=== PATIENT | female | born 1960 | race Caucasian/White ===

== ENCOUNTER → 2017-10-08 07:23 | Outpatient (CLI) | payer MEDICAID | END | disposition home or self-care (01) | LOC: D.CT 07:23 | DX: R77.2 Abnormality of alphafetoprotein (principal) ==

== ENCOUNTER 2018-04-20 20:16 | Emergency (ER) | payer MEDICAID | END 2018-04-20 21:42 | disposition home or self-care (01) | LOC: D.ER 20:16 | DX: K04.7 Periapical abscess without sinus (principal); K08.89 Other specified disorders of teeth and supporting structures; K21.9 Gastro-esophageal reflux disease without esophagitis; F17.200 Nicotine dependence, unspecified, uncomplicated ==

== ENCOUNTER 2018-06-22 15:46 | Emergency (ER) | payer MEDICAID ==
[~2018-06-22] VITALS: Ht 152.4 cm; Wt 45.5 kg
[2018-06-22 16:34] VITALS: Ht 152.4 cm; Wt 45.5 kg
[2018-06-22] MEDS ORDERED: XANAX XR2 MG PO (16:35)
[2018-06-22] MEDS ORDERED: ATIVAN0.5 MG PO (16:36)
[2018-06-22] MEDS ORDERED: NORCO 7.5/325 T1 TA1 PO (16:36)
[2018-06-22] MEDS ORDERED: CALCIUM 250+D T1 TAB PO (16:36)
[2018-06-22 17:06] LABS: APPEARANCE CLEAR (CLEAR); BILIRUBIN NEGATIVE (NEGATIVE); COLOR YELLOW (YELLOW); GLUCOSE NEGATIVE (NEGATIVE); KETONE NEGATIVE (NEGATIVE); NITRITE NEGATIVE (NEGATIVE); PROTEIN NEGATIVE (NEGATIVE); UROBILINOGEN NORMAL (NORMAL)
[2018-06-22 17:08] LABS: EPITHELIAL CELLS 0-5 /hpf (0-5); RED CELLS - URINE 0-5 /hpf (0-5); WHITE CELLS - URINE 0-5 /hpf (0-5)
[2018-06-22 17:09] LABS: BACTERIA MODERATE /hpf (NONE SEEN)
[2018-06-22 17:19] LABS: BASOPHILS 0.3 % (0-2); EOSINOPHILS 2.1 % (0-7); HEMATOCRIT 37.2 % (36.0-48.0); HEMOGLOBIN 12.6 g/dL (12-16); IMMATURE GRANULOCYTES 0.2 % (0-5); LYMPHOCYTES 49.7 % (15-50); MCH 30.7 pg (26.0-34.0); MCHC 33.9 g/dL (31.0-37.0); MCV 90.5 fL (80.0-100.0); MEAN PLATELET VOLUME 10.2 fL (7.4-10.4); MONOCYTES 7.3 % (2-11); NEUTROPHILS 40.4 % (40-80); PLATELET COUNT 332 10x3/uL (130-400); RBC 4.11 10x6/uL (4.00-5.40); RDW 13.1 % (11.5-14.5); WBC 9.5 10x3/uL (4.8-10.8)
[2018-06-22 17:26] LABS: ALKALINE PHOSPHATASE 75 U/L (46-116); ALT (SGPT) 20 U/L (10-68); BILIRUBIN - TOTAL 0.32 mg/dL (0.2-1.3); CALC OSMOLALITY 271 mosm/kg (275-300); CALCIUM 10.1 mg/dL (8.5-10.1); CARBON DIOXIDE 28.3 mmol/L (21.0-32.0); CHLORIDE - SERUM 104 mmol/L (98-107); CREATININE - SERUM 0.8 mg/dL (0.6-1.3); GLUCOSE 107 mg/dL (74-106); POTASSIUM - SERUM 4.6 mmol/L (3.5-5.1); PROTEIN - SERUM 8.2 g/dL (6.4-8.2); SODIUM 137 mmol/L (136-145); UREA NITROGEN 8 mg/dL (7-18); eGFR NON AFRICAN AMERICAN 78 mL/min (90-120)
[2018-06-22 17:41] LABS: AMYLASE - SERUM 91 U/L (25-115); LIPASE 133 U/L (73-393)
[2018-06-22] MEDS ORDERED: BENTYL 20 MG TA20 MG PO (22:26)
[2018-06-22] MEDS ORDERED: COMPAZINE10 MG PO (22:26)
[2018-06-22 22:48] VITALS: BP 90/60
== END 2018-06-22 22:44 | disposition home or self-care (01) ==
LOC: D.ER 15:46
PROVIDERS: Emergency Medicine
DX: R10.12 Left upper quadrant pain (principal); R11.2 Nausea with vomiting, unspecified; R51 Headache; B19.20 Unspecified viral hepatitis C without hepatic coma; K21.9 Gastro-esophageal reflux disease without esophagitis

== ENCOUNTER 2018-09-21 05:55 | Emergency (ER) | payer MEDICAID ==
[~2018-09-21] VITALS: Ht 152.4 cm; Wt 36.4 kg
[~2018-09-21 05:55] MED LIST: ATIVAN0.5 MG PO; BENTYL 20 MG TA20 MG PO; CALCIUM 250+D T1 TAB PO; COMPAZINE10 MG PO; NORCO 7.5/325 T1 TA1 PO; XANAX XR2 MG PO
[2018-09-21 05:56] VITALS: Ht 152.4 cm; Wt 36.4 kg
[2018-09-21] MEDS ORDERED: VALIUM10 MG PO (05:58)
[2018-09-21] MEDS ORDERED: COLACE100 MG PO (05:58)
[2018-09-21] MEDS ORDERED: NORCO 5/325 TAB1 TAB PO (06:43)
[2018-09-21 06:58] VITALS: BP 116/66
[2018-09-21] MEDS ORDERED: ZANTAC300 MG PO (12:31)
[2018-09-21] MEDS ORDERED: NORCO 10-325 TA1 TAB PO (14:21)
== END 2018-09-21 06:58 | disposition home or self-care (01) ==
LOC: D.ER 05:55
DX: S93.402A Sprain of unspecified ligament of left ankle, initial encounter (principal); X50.1XXA Overexertion from prolonged static or awkward postures, initial encounter; Y93.89 Activity, other specified; Y92.019 Unspecified place in single-family (private) house as the place of occurrence of the external cause

== ENCOUNTER 2018-09-21 12:29 | Emergency (ER) | payer MEDICAID ==
[~2018-09-21] VITALS: Ht 152.4 cm; Wt 43.6 kg
[~2018-09-21 12:29] MED LIST changes: +COLACE100 MG PO; +NORCO 5/325 TAB1 TAB PO; +VALIUM10 MG PO
[2018-09-21 12:30] VITALS: Ht 152.4 cm; Wt 43.6 kg
[2018-09-21] MEDS ORDERED: ZANTAC300 MG PO (12:31)
[2018-09-21] MEDS ORDERED: NORCO 10-325 TA1 TAB PO (14:21)
[2018-09-21 15:14] VITALS: BP 128/70
== END 2018-09-21 15:16 | disposition home or self-care (01) ==
LOC: D.ER 12:29
DX: S92.002G Unspecified fracture of left calcaneus, subsequent encounter for fracture with delayed healing (principal); W18.30XD Fall on same level, unspecified, subsequent encounter; F41.9 Anxiety disorder, unspecified; K21.9 Gastro-esophageal reflux disease without esophagitis

== ENCOUNTER → 2018-12-05 09:09 | Outpatient (CLI) | payer MEDICAID ==
[2018-09-21 12:30] VITALS: BMI 18.7
[~2018-12-05 09:09] MED LIST changes: +NORCO 10-325 TA1 TAB PO; +ZANTAC300 MG PO
== END | disposition home or self-care (01) ==
LOC: D.MRI 09:09
DX: S92.902G Unspecified fracture of left foot, subsequent encounter for fracture with delayed healing (principal); X58.XXXA Exposure to other specified factors, initial encounter

== ENCOUNTER 2018-12-18 05:29 | Observation (INO) | payer MEDICAID ==
[~2018-12-18] VITALS: Ht 152.4 cm; Wt 45.5 kg
[2018-12-18 06:08] VITALS: BP 118/57
[2018-12-18 06:23] LABS: BASOPHILS 0.5 % (0-2); EOSINOPHILS 3.3 % (0-7); HEMATOCRIT 36.4 % (36.0-48.0); HEMOGLOBIN 12.4 g/dL (12-16); LYMPHOCYTES 52.1 % (15-50); MCH 31.2 pg (26.0-34.0); MCHC 34.1 g/dL (31.0-37.0); MCV 91.7 fL (80.0-100.0); MEAN PLATELET VOLUME 10.2 fL (7.4-10.4); MONOCYTES 5.6 % (2-11); NEUTROPHILS 38.5 % (40-80); PLATELET COUNT 282 10x3/uL (130-400); RBC 3.97 10x6/uL (4.00-5.40); RDW 12.8 % (11.5-14.5); WBC 7.6 10x3/uL (4.8-10.8)
[2018-12-18 06:31] LABS: ALBUMIN 3.6 g/dL (3.4-5.0); ALKALINE PHOSPHATASE 50 U/L (46-116); ALT (SGPT) 18 U/L (10-68); BILIRUBIN - TOTAL 0.18 mg/dL (0.2-1.3); CALC OSMOLALITY 284 mosm/kg (275-300); CALCIUM 8.7 mg/dL (8.5-10.1); CARBON DIOXIDE 28.2 mmol/L (21.0-32.0); CHLORIDE - SERUM 107 mmol/L (98-107); CREATININE - SERUM 0.9 mg/dL (0.6-1.3); GLUCOSE 78 mg/dL (74-106); POTASSIUM - SERUM 3.9 mmol/L (3.5-5.1); PROTEIN - SERUM 7.3 g/dL (6.4-8.2); SODIUM 143 mmol/L (136-145); UREA NITROGEN 14 mg/dL (7-18); eGFR NON AFRICAN AMERICAN 68 mL/min (90-120)
[2018-12-18 06:34] LABS: APTT 31.7 SECONDS (22.8-39.4); INR 0.98 (0.85-1.17); PROTIME 12.5 SECONDS (11.6-15.0)
--- NOTE | 2018-12-18 06:35 | NUR ---
WENT INTO PT ROOM D/T C/O OF CHEST PAIN. TORADOL 30MG IVP ORDERED. PT REFUSED TORADOL D/T SHE GETS MIGRAINES WHEN SHE TAKES TORADOL. NOTIFIED DR. LAMAR. ORDER PLACED FOR 25 MG DEMEROL IVP. PT WAS VERY SATISFIED AFTER DEMEROL IVP GIVEN.
[2018-12-18 06:43] LABS: CKMB 0.5 U/L (0.0-3.6); CREATINE KINASE 79 UL (21-215); MAGNESIUM - SERUM 1.8 mg/dL (1.8-2.4); TROPONIN-I < 0.017 ng/mL (0.000-0.060)
--- NOTE | 2018-12-18 08:20 | NUR ---
PT UPDATED ON POC. PT RECEIVES VERBAL PERMISSION FROM DR. GRAY TO TAKE HOME PAIN MEDICATIONS. H2O PROVIDED TO PATIENT. ALL QUESTIONS ANSWERED. WILL CONTINUE TO MONITOR.
[2018-12-18 09:20] VITALS: BP 123/84
[2018-12-18] MEDS ORDERED: PHENERGAN25 M1 PO (11:53)
--- NOTE | 2018-12-18 12:12 | NUR ---
RECIVED FROM DIRECTOR GENERAL TMST. ADMIT ASSESSMENT PER RN
[2018-12-18 12:33] VITALS: BP 123/84; Ht 152.4 cm; Wt 45.5 kg
--- NOTE | 2018-12-18 12:39 | CN ---
PATIENT NAME:BELLA FISHER MEDICAL RECORD: [id number] : 62 LOCATION:D.M2 D.2122 ADMIT DATE: 12/18/18 ACCOUNT: [id number] CONSULTING PHYSICIAN: ABNER GRAY MD REFERRING PHYSICIAN: ABNER GRAY MD DATE OF CONSULTATION: 12/18/2018 DIAGNOSES: 1. Chest pain compatible with angina. 2. Smoking history. HISTORY OF PRESENT ILLNESS: Ms. Fisher presents with chest discomfort that awoke her at 2:30 a.m. She continues to have chest discomfort. Her EKG is normal. First set of enzymes is normal. She has no history of ischemic heart disease. PHYSICAL EXAMINATION: GENERAL APPEARANCE: Well-nourished, well-developed, appears stated age. Level of distress, comfortable. PSYCHIATRIC: Mental status, alert, normal affect. Orientation, oriented to time, place and person. EYES: Lids and conjunctiva, noninjected. No discharge, no pallor. ENT: Lips, teeth, gums, normal dentition. Oropharynx, no cyanosis, no pallor. NECK: Carotid arteries, bilateral normal upstroke, no bruits, no thrills. JUGULAR VEINS: No jugular venous pressure or distention. CERVICAL LYMPH NODES: Nontender, nonenlarged. THYROID: Not enlarged. Nontender. No nodules. LUNGS: Respiratory effort, unlabored. CHEST: Normal curvature. No thoracic deformity. No chest wall tenderness. Percussion, resonant. Auscultation, clear. No wheezes, no rales, no rhonchi. CARDIOVASCULAR: Precordial exam, nondisplaced. No heaves or pericardial thrills. Rate and rhythm, regular. Heart sounds, normal S1, normal S2. No S3, no gallop, no rub. Systolic murmur, not heard. Diastolic murmur, not heard. EXTREMITIES: No cyanosis, no edema. Peripheral pulses, full and equal in all extremities, except as noted. No bruits appreciated. ABDOMEN: Soft, nondistended. Normal aorta. No bruit. Nontender. No masses. Liver, nontender, no hepatomegaly. Spleen, nontender, no splenomegaly. MUSCULOSKELETAL: No joint tenderness. No joint swelling. No erythema. NEUROLOGICAL: Normal gait, normal strength, normal tone. SKIN: Warm and dry. OVERALL IMPRESSION: Chest discomfort. We will proceed with stress testing Cardiolite imaging. Further care depends upon findings of the stress test. TRANSINT:[id number] Voice Confirmation ID: [id number] DOCUMENT ID: [id number] ABNER GRAY MD at 1239 CC: [id number] DICTATION DATE: 12/18/18 0747 FORMAL WAITER/WAITRESS: 12/18/18 0815 ADM IN [place] [id number] [place] [address]
--- NOTE | 2018-12-18 13:51 | NUR ---
DC GIVEN TO PT
--- NOTE | 2018-12-18 13:56 | NUR ---
DC HOME PER PERSONIAL CAR
--- NOTE | 2018-12-19 08:36 | MORECARE ---
CASE MANAGEMENT DISCHARGE SUMMARY PATIENT: BELLA OBRIEN OSCAR UNIT: [id number] ADM DATE: 12/18/18 AGE: 58 : 62 SEX: F ROOM/BED: D.2121 AUTHOR: LON WILLIAM PHYSICIAN: REFERRING PHYSICIAN: ABNER GRAY MD DATE OF SERVICE: 12/19/18 Discharge Plan Patient Name: BELLA OBRIEN Facility: [facility]:[place] : 1960 Planned Disposition: Home Anticipated Discharge Date: 12/18/18 Discharge Date: 12/18/2018 Expected LOS: 1 Initial Reviewer: [email or web address] Initial Review Date: 12/19/2018 Generated: 12/19/18 9:35 am Patient Name: BELLA OBRIEN Page [id number] at 0836 All edits/amendments must be made on the electronic document DICTATION DATE: 12/19/18834 HAY BUCKLER: SALEEM 12/19/18834 RPT#: [id number] DC DATE:12/18/18 STATUS: DIS IN [facility] [address] [place] [address] END OF REPORT
--- NOTE | 2018-12-19 18:15 | ST ---
PATIENT:BELLA OBRIEN BANNER MD [facility] MEDICAL RECORD: [id number] SEX: F LOCATION:D. D.212 ORDER #: ADMISSION DATE: 12/18/18 AGE OF PATIENT: 58 REFERRING PHYSICIAN: INTERPRETING PHYSICIAN: ABNER GRAY MD DATE OF SERVICE: 12/18/2018 PROCEDURE: Nuclear stress testing. INDICATION: Chest pain of unknown etiology. She was exercised on standard Lexiscan protocol with 30 mCi of sestamibi injected at peak stress. FINDINGS: Gated SPECT reveals preserved ejection fraction greater than 60% with good wall motioning and thickening and brightening throughout all segments. SPECT imaging Cardiolite was used as myocardial perfusion agent. There is homogeneous uptake throughout all segments at stress. OVERALL IMPRESSION: This is a normal stress only nuclear stress test with homogeneous uptake throughout all segments with stress with no evidence of ischemia or previous infarction. Gated SPECT reveals preserved ejection fraction greater than 60%. In this patient with ongoing symptomatology, there is a low likelihood of hemodynamically significant coronary artery disease. TRANSINT:[id number] Voice Confirmation ID: [id number] DOCUMENT ID: [id number] ABNER GRAY MD at 1815 CC: [id number] DICTATION DATE: 12/18/18 1210 MUSEUM TECHNICIAN: 12/19/18 0012 DIS IN 12/18/18 [facility] [address] [place] [address]
== END 2018-12-18 13:57 | disposition home or self-care (01) ==
LOC: D.ER 05:29 → D.EDHOLD 08:05 → D.M2 08:05 → OBSVTIME 08:05 → D.M2 11:10
PROVIDERS: Family Medicine; ADMIT Internal Medicine Interventional Cardiology
DX: R07.9 Chest pain, unspecified (principal); Z87.891 Personal history of nicotine dependence; J44.9 Chronic obstructive pulmonary disease, unspecified; F41.9 Anxiety disorder, unspecified; K21.9 Gastro-esophageal reflux disease without esophagitis

== ENCOUNTER 2019-01-22 14:06 | Emergency (ER) | payer MEDICAID ==
[~2019-01-22] VITALS: Ht 152.4 cm; Wt 45.5 kg
[~2019-01-22 14:06] MED LIST changes: +PHENERGAN25 M1 PO
[2019-01-22 14:18] VITALS: Ht 152.4 cm; Wt 45.5 kg
[2019-01-22] MEDS ORDERED: VISTARIL25 MG PO (16:03)
[2019-01-22 16:48] VITALS: BP 113/78
== END 2019-01-22 16:32 | disposition home or self-care (01) ==
LOC: D.ER 14:06
DX: F11.23 Opioid dependence with withdrawal (principal)

== ENCOUNTER 2019-01-27 11:41 | Emergency (ER) | payer MEDICAID ==
[~2019-01-27] VITALS: Ht 152.4 cm; Wt 45.5 kg
[~2019-01-27 11:41] MED LIST changes: +VISTARIL25 MG PO
[2019-01-27 11:51] VITALS: Ht 152.4 cm; Wt 45.5 kg
[2019-01-27 12:41] LABS: BASOPHILS 0.2 % (0-2); EOSINOPHILS 1.3 % (0-7); HEMATOCRIT 37.7 % (36.0-48.0); HEMOGLOBIN 12.9 g/dL (12-16); IMMATURE GRANULOCYTES 0.2 % (0-5); LYMPHOCYTES 37.6 % (15-50); MCH 31.3 pg (26.0-34.0); MCHC 34.2 g/dL (31.0-37.0); MCV 91.5 fL (80.0-100.0); MEAN PLATELET VOLUME 9.9 fL (7.4-10.4); MONOCYTES 5.6 % (2-11); NEUTROPHILS 55.1 % (40-80); RBC 4.12 10x6/uL (4.00-5.40); RDW 13.1 % (11.5-14.5); WBC 8.4 10x3/uL (4.8-10.8)
[2019-01-27 12:44] LABS: PLATELET COUNT 383 10x3/uL (130-400)
[2019-01-27 12:55] LABS: ALBUMIN 3.9 g/dL (3.4-5.0); ALKALINE PHOSPHATASE 72 U/L (46-116); ALT (SGPT) 18 U/L (10-68); BILIRUBIN - TOTAL 0.14 mg/dL (0.2-1.3); CALC OSMOLALITY 284 mosm/kg (275-300); CALCIUM 9.5 mg/dL (8.5-10.1); CARBON DIOXIDE 24.3 mmol/L (21.0-32.0); CHLORIDE - SERUM 107 mmol/L (98-107); CREATININE - SERUM 0.8 mg/dL (0.6-1.3); GLUCOSE 104 mg/dL (74-106); POTASSIUM - SERUM 4.2 mmol/L (3.5-5.1); PROTEIN - SERUM 7.7 g/dL (6.4-8.2); SODIUM 143 mmol/L (136-145); UREA NITROGEN 12 mg/dL (7-18); eGFR NON AFRICAN AMERICAN 78 mL/min (90-120)
[2019-01-27] MEDS ORDERED: LOMOTIL 2.5-0.1 EAC1 PO (13:54)
[2019-01-27 14:48] VITALS: BP 139/90
== END 2019-01-27 14:49 | disposition home or self-care (01) ==
LOC: D.ER 11:41
PROVIDERS: Emergency Medicine
DX: R19.7 Diarrhea, unspecified (principal)

== ENCOUNTER 2019-02-06 16:43 | Emergency (ER) | payer MEDICAID ==
[~2019-02-06] VITALS: Ht 152.4 cm; Wt 40.9 kg
[~2019-02-06 16:43] MED LIST changes: +LOMOTIL 2.5-0.1 EAC1 PO
[2019-02-06 17:23] VITALS: Ht 152.4 cm; Wt 40.9 kg
[2019-02-06 20:50] VITALS: BP 115/68
== END 2019-02-06 20:51 | disposition home or self-care (01) ==
LOC: D.ER 16:43
DX: G89.29 Other chronic pain (principal); M79.672 Pain in left foot

== ENCOUNTER 2019-02-10 11:24 | Emergency (ER) | payer MEDICAID ==
[~2019-02-10] VITALS: Ht 152.4 cm; Wt 40.9 kg
[2019-02-10 11:32] VITALS: BP 117/84; Ht 152.4 cm; Wt 40.9 kg
== END 2019-02-10 14:33 | disposition home or self-care (01) ==
LOC: D.ER 11:24
DX: G89.29 Other chronic pain (principal); Z76.5 Malingerer [conscious simulation]

== ENCOUNTER 2019-02-12 14:12 | Emergency (ER) | payer MEDICAID ==
[~2019-02-12] VITALS: Ht 152.4 cm; Wt 40.9 kg
[2019-02-12 14:34] VITALS: Ht 152.4 cm; Wt 40.9 kg
[2019-02-12] MEDS ORDERED: LYRICA50 MG PO (19:16)
[2019-02-12 19:40] VITALS: BP 120/75
== END 2019-02-12 19:42 | disposition home or self-care (01) ==
LOC: D.ER 14:12
DX: G62.9 Polyneuropathy, unspecified (principal)

== ENCOUNTER 2019-02-13 18:44 | Emergency (ER) | payer MEDICAID ==
[~2019-02-13] VITALS: Ht 152.4 cm; Wt 40.9 kg
[~2019-02-13 18:44] MED LIST changes: +LYRICA50 MG PO
[2019-02-13 18:51] VITALS: Ht 152.4 cm; Wt 40.9 kg
[2019-02-13 20:50] VITALS: BP 121/76
== END 2019-02-13 20:50 | disposition home or self-care (01) ==
LOC: D.ER 18:44
DX: M79.672 Pain in left foot (principal)

== ENCOUNTER → 2019-06-13 07:20 | Outpatient (CLI) | payer MEDICAID ==
[2019-02-13 18:51] VITALS: BMI 17.6
== END | disposition home or self-care (01) ==
LOC: D.MRI 07:20
PROVIDERS: ATTEND Orthopaedic Surgery Foot and Ankle Surgery
DX: M25.572 Pain in left ankle and joints of left foot (principal)

== ENCOUNTER 2019-08-01 08:37 | Emergency (ER) | payer MEDICAID ==
[~2019-08-01] VITALS: Ht 152.4 cm; Wt 48.2 kg
[2019-08-01 08:40] VITALS: Ht 152.4 cm; Wt 48.2 kg
[2019-08-01 09:08] LABS: ANION GAP 14.3 mmol/L (8-16); BILIRUBIN - TOTAL 0.38 mg/dL (0.2-1.3); CALCIUM 9.5 mg/dL (8.5-10.1); CARBON DIOXIDE 25.7 mmol/L (21.0-32.0); CREATININE - SERUM 0.9 mg/dL (0.6-1.3); PROTEIN - SERUM 8.2 g/dL (6.4-8.2)
[2019-08-01 09:25] LABS: BASOPHILS 0.2 % (0-2); EOSINOPHILS 0.7 % (0-7); HEMATOCRIT 41.5 % (36.0-48.0); HEMOGLOBIN 14.3 g/dL (12-16); IMMATURE GRANULOCYTES 0.2 % (0-5); LYMPHOCYTES 19.5 % (15-50); MCH 31.4 pg (26.0-34.0); MCHC 34.5 g/dL (31.0-37.0); MEAN PLATELET VOLUME 10.3 fL (7.4-10.4); NEUTROPHILS 73.4 % (40-80); PLATELET COUNT 371 10x3/uL (130-400); RBC 4.56 10x6/uL (4.00-5.40); WBC 10.4 10x3/uL (4.8-10.8)
[2019-08-01] MEDS ORDERED: MEDROL DOSE PACK4 MG PO (09:32)
[2019-08-01] MEDS ORDERED: ZPAK PO (09:32)
[2019-08-01 09:41] VITALS: BP 124/81
[2019-08-01] MEDS ORDERED: DIFLUCAN150 MG PO (09:53)
== END 2019-08-01 09:55 | disposition home or self-care (01) ==
LOC: D.ER 08:37
PROVIDERS: Family Medicine
DX: J06.9 Acute upper respiratory infection, unspecified (principal); R09.82 Postnasal drip; R09.89 Other specified symptoms and signs involving the circulatory and respiratory systems; R51 Headache

== ENCOUNTER 2019-08-04 08:27 | Emergency (ER) | payer MEDICAID ==
[~2019-08-04] VITALS: Ht 152.4 cm; Wt 48.2 kg
[~2019-08-04 08:27] MED LIST changes: +DIFLUCAN150 MG PO; +MEDROL DOSE PACK4 MG PO; +ZPAK PO
[2019-08-04 08:28] VITALS: Ht 152.4 cm; Wt 48.2 kg
[2019-08-04 10:07] LABS: BASOPHILS 0.4 % (0-2); EOSINOPHILS 0.3 % (0-7); HEMATOCRIT 39.5 % (36.0-48.0); HEMOGLOBIN 13.6 g/dL (12-16); IMMATURE GRANULOCYTES 0.3 % (0-5); MCH 31.4 pg (26.0-34.0); MCHC 34.4 g/dL (31.0-37.0); MCV 91.2 fL (80.0-100.0); MEAN PLATELET VOLUME 10.1 fL (7.4-10.4); MONOCYTES 7.3 % (2-11); NEUTROPHILS 65.7 % (40-80); PLATELET COUNT 300 10x3/uL (130-400); RBC 4.33 10x6/uL (4.00-5.40); RDW 13.9 % (11.5-14.5); WBC 7.9 10x3/uL (4.8-10.8)
[2019-08-04 10:20] LABS: ALBUMIN 3.6 g/dL (3.4-5.0); ANION GAP 15.6 mmol/L (8-16); BILIRUBIN - TOTAL 0.21 mg/dL (0.2-1.3); CALCIUM 9.3 mg/dL (8.5-10.1); CARBON DIOXIDE 24.6 mmol/L (21.0-32.0); POTASSIUM - SERUM 4.2 mmol/L (3.5-5.1); PROTEIN - SERUM 8.1 g/dL (6.4-8.2)
[2019-08-04] MEDS ORDERED: CLEOCIN HCL300 MG PO (10:30)
[2019-08-04] MEDS ORDERED: FLUTICASONE PRO16 GM NASAL (10:30)
[2019-08-04 10:45] VITALS: BP 117/801
== END 2019-08-04 10:45 | disposition home or self-care (01) ==
LOC: D.ER 08:27
PROVIDERS: Family Medicine
DX: J01.90 Acute sinusitis, unspecified (principal)

== ENCOUNTER 2019-12-19 11:48 | Emergency (ER) | payer MEDICAID ==
[~2019-12-19] VITALS: Ht 152.4 cm; Wt 48.2 kg
[~2019-12-19 11:48] MED LIST changes: +CLEOCIN HCL300 MG PO; +FLUTICASONE PRO16 GM NASAL
[2019-12-19 11:53] VITALS: Ht 152.4 cm; Wt 48.2 kg
[2019-12-19] MEDS ORDERED: ACETAMINOPHEN500 M1 PO (13:25)
[2019-12-19] MEDS ORDERED: CYCLOBENZAPRINE10 MG PO (13:25)
[2019-12-19] MEDS ORDERED: IBUPROFEN800 MG PO (13:25)
[2019-12-19 13:33] VITALS: BP 138/79
== END 2019-12-19 14:50 | disposition home or self-care (01) ==
LOC: D.ER 11:48
DX: R07.89 Other chest pain (principal); M79.18 Myalgia, other site; W19.XXXA Unspecified fall, initial encounter; Y93.9 Activity, unspecified; Y92.9 Unspecified place or not applicable

== ENCOUNTER 2020-01-23 09:27 | Emergency (ER) | payer MEDICAID ==
[~2020-01-23] VITALS: Ht 152.4 cm; Wt 48.2 kg
[~2020-01-23 09:27] MED LIST changes: +ACETAMINOPHEN500 M1 PO; +CYCLOBENZAPRINE10 MG PO; +IBUPROFEN800 MG PO
[2020-01-23 09:31] VITALS: Ht 152.4 cm; Wt 48.2 kg
[2020-01-23 09:48] LABS: BILIRUBIN NEGATIVE (NEGATIVE); GLUCOSE NEGATIVE (NEGATIVE); KETONE NEGATIVE (NEGATIVE); NITRITE NEGATIVE (NEGATIVE); UROBILINOGEN NORMAL (NORMAL)
[2020-01-23 10:03] LABS: HEMATOCRIT 40.1 % (36.0-48.0); HEMOGLOBIN 13.4 g/dL (12-16); MCH 31.5 pg (26.0-34.0); MCHC 33.4 g/dL (31.0-37.0); MCV 94.1 fL (80.0-100.0); MEAN PLATELET VOLUME 10.1 fL (7.4-10.4); PLATELET COUNT 325 10x3/uL (130-400); RBC 4.26 10x6/uL (4.00-5.40); RDW 12.6 % (11.5-14.5); WBC 6.5 10x3/uL (4.8-10.8)
[2020-01-23 10:11] LABS: ANION GAP 15.1 mmol/L (8-16); CALCIUM 8.8 mg/dL (8.5-10.1); CREATININE - SERUM 0.9 mg/dL (0.6-1.3); POTASSIUM - SERUM 4.1 mmol/L (3.5-5.1)
[2020-01-23 10:17] LABS: ALBUMIN 3.9 g/dL (3.4-5.0); BILIRUBIN - TOTAL 0.27 mg/dL (0.2-1.3)
[2020-01-23 10:32] LABS: EOSINOPHILS 2 % (0-7); LYMPHOCYTES 65 % (15-50); MONOCYTES 1 % (2-11); NEUTROPHILS 32 % (40-80); PLATELET ESTIMATE NORMAL
[2020-01-23 10:39] LABS: UDS - AMPHET NEGATIVE QUAL (NEGATIVE); UDS - BARB NEGATIVE QUAL (NEGATIVE); UDS - BENZO POSITIVE QUAL (NEGATIVE); UDS - COCAINE NEGATIVE QUAL (NEGATIVE); UDS - OPIATE POSITIVE QUAL (NEGATIVE); UDS - PCP NEGATIVE QUAL (NEGATIVE); UDS - THC POSITIVE QUAL (NEGATIVE)
[2020-01-23 10:59] LABS: CREATINE KINASE 51 UL (21-215); TROPONIN-I < 0.017 ng/mL (0.000-0.060)
[2020-01-23] MEDS ORDERED: BUTALB-APAP-CA1 EACH PO (12:39)
[2020-01-23] MEDS ORDERED: PHENERGAN25 M1 PO (12:39)
[2020-01-23 13:26] VITALS: BP 115/79
== END 2020-01-23 13:50 | disposition home or self-care (01) ==
LOC: D.ER 09:27
PROVIDERS: Emergency Medicine
DX: R51 Headache (principal); R53.1 Weakness; B34.9 Viral infection, unspecified; M54.9 Dorsalgia, unspecified

== ENCOUNTER 2020-02-02 04:11 | Emergency (ER) | payer MEDICAID ==
[~2020-02-02] VITALS: Ht 152.4 cm; Wt 47.2 kg
[~2020-02-02 04:11] MED LIST changes: +BUTALB-APAP-CA1 EACH PO
[2020-02-02 04:19] VITALS: Ht 152.4 cm; Wt 47.2 kg
[2020-02-02] MEDS ORDERED: PEPCID AC20 MG PO (04:46)
[2020-02-02] MEDS ORDERED: VISTARIL25 MG PO (04:46)
[2020-02-02 06:04] VITALS: BP 125/78
[2020-02-03] MEDS ORDERED: ZOFRAN ODT4 MG/UDTAB PO (11:09)
== END 2020-02-02 06:05 | disposition home or self-care (01) ==
LOC: D.ER 04:11
DX: R21 Rash and other nonspecific skin eruption (principal)

== ENCOUNTER 2020-02-03 09:45 | Emergency (ER) | payer MEDICAID ==
[~2020-02-03] VITALS: Ht 152.4 cm; Wt 47.3 kg
[~2020-02-03 09:45] MED LIST changes: +PEPCID AC20 MG PO
[2020-02-03 09:47] VITALS: Ht 152.4 cm; Wt 47.3 kg
[2020-02-03 10:47] LABS: BILIRUBIN NEGATIVE (NEGATIVE); GLUCOSE NEGATIVE (NEGATIVE); KETONE NEGATIVE (NEGATIVE); NITRITE NEGATIVE (NEGATIVE); SPECIFIC GRAVITY 1.015 (1.005-1.020); UROBILINOGEN NORMAL (NORMAL)
[2020-02-03 10:50] LABS: HEMATOCRIT 36.6 % (36.0-48.0); HEMOGLOBIN 12.3 g/dL (12-16); MCH 31.4 pg (26.0-34.0); MCHC 33.6 g/dL (31.0-37.0); MCV 93.4 fL (80.0-100.0); MEAN PLATELET VOLUME 10.1 fL (7.4-10.4); PLATELET COUNT 346 10x3/uL (130-400); RBC 3.92 10x6/uL (4.00-5.40); RDW 12.7 % (11.5-14.5)
[2020-02-03 11:00] LABS: ANION GAP 14.2 mmol/L (8-16); CALCIUM 9.2 mg/dL (8.5-10.1); CARBON DIOXIDE 29.4 mmol/L (21.0-32.0); CREATININE - SERUM 1.2 mg/dL (0.6-1.3); POTASSIUM - SERUM 3.6 mmol/L (3.5-5.1)
[2020-02-03 11:07] LABS: ALBUMIN 4.1 g/dL (3.4-5.0); BILIRUBIN - TOTAL 0.26 mg/dL (0.2-1.3); PROTEIN - SERUM 8.1 g/dL (6.4-8.2)
[2020-02-03] MEDS ORDERED: ZOFRAN ODT4 MG/UDTAB PO (11:09)
[2020-02-03 11:30] VITALS: BP 99/66
[2020-02-03 14:04] LABS: LYMPHOCYTES 50 % (15-50); MONOCYTES 8 % (2-11); NEUTROPHILS 42 % (40-80); PLATELET ESTIMATE NORMAL
[2020-02-03 14:05] LABS: ROULEAUX OCC
== END 2020-02-03 11:43 | disposition home or self-care (01) ==
LOC: D.ER 09:45
PROVIDERS: Family Medicine
DX: R21 Rash and other nonspecific skin eruption (principal); R51 Headache; E16.2 Hypoglycemia, unspecified; R11.2 Nausea with vomiting, unspecified

== ENCOUNTER 2020-02-07 13:37 | Emergency (ER) | payer MEDICAID ==
[~2020-02-07] VITALS: Ht 152.4 cm; Wt 56.8 kg
[~2020-02-07 13:37] MED LIST changes: +ZOFRAN ODT4 MG/UDTAB PO
[2020-02-07 13:42] VITALS: BP 127/84; Ht 152.4 cm; Wt 56.8 kg
[2020-02-07] MEDS ORDERED: VISTARIL50 MG PO (14:01)
== END 2020-02-07 14:15 | disposition home or self-care (01) ==
LOC: D.ER 13:37
DX: R21 Rash and other nonspecific skin eruption (principal); L50.9 Urticaria, unspecified; M54.9 Dorsalgia, unspecified

== ENCOUNTER 2020-02-07 19:41 | Emergency (ER) | payer MEDICAID ==
[2020-02-07 13:42] VITALS: BMI 24.4
[~2020-02-07 19:41] MED LIST changes: +VISTARIL50 MG PO
== END 2020-02-07 19:55 | disposition left against medical advice (07) ==
LOC: D.ER 19:41
DX: R21 Rash and other nonspecific skin eruption (principal); Z53.29 Procedure and treatment not carried out because of patient's decision for other reasons

== ENCOUNTER → 2020-06-03 10:50 | Outpatient (CLI) | payer MEDICAID ==
[2020-06-03 11:17] LABS: BASOPHILS 0.4 % (0-2); EOSINOPHILS 2.8 % (0-7); HEMOGLOBIN 13.2 g/dL (12-16); IMMATURE GRANULOCYTES 0.1 % (0-5); LYMPHOCYTES 46.9 % (15-50); MCH 31.7 pg (26.0-34.0); MCHC 33.8 g/dL (31.0-37.0); MCV 93.8 fL (80.0-100.0); MEAN PLATELET VOLUME 9.8 fL (7.4-10.4); MONOCYTES 5.5 % (2-11); NEUTROPHILS 44.3 % (40-80); PLATELET COUNT 347 10x3/uL (130-400); RBC 4.16 10x6/uL (4.00-5.40); RDW 12.7 % (11.5-14.5); WBC 7.3 10x3/uL (4.8-10.8)
[2020-06-03 11:47] LABS: ALBUMIN 3.9 g/dL (3.4-5.0); ANION GAP 9.4 mmol/L (8-16); BILIRUBIN - DIRECT 0.08 mg/dL (0.00-0.30); BILIRUBIN - INDIRECT 0.07 mg/dL (0.00-1.00); BILIRUBIN - TOTAL 0.15 mg/dL (0.2-1.3); CALCIUM 9.2 mg/dL (8.5-10.1); CARBON DIOXIDE 27.5 mmol/L (21.0-32.0); POTASSIUM - SERUM 3.9 mmol/L (3.5-5.1); PROTEIN - SERUM 7.8 g/dL (6.4-8.2)
== END | disposition home or self-care (01) ==
LOC: D.LAB 10:50
PROVIDERS: ATTEND Nurse Practitioner Acute Care
DX: B18.2 Chronic viral hepatitis C (principal)

== ENCOUNTER 2020-08-26 07:53 | Emergency (ER) | payer MEDICAID ==
[~2020-08-26] VITALS: Ht 152.4 cm; Wt 45.5 kg
[2020-08-26 08:01] VITALS: Ht 152.4 cm; Wt 45.5 kg
[2020-08-26 10:13] LABS: BILIRUBIN NEGATIVE (NEGATIVE); KETONE NEGATIVE (NEGATIVE); NITRITE NEGATIVE (NEGATIVE); UROBILINOGEN NORMAL mg/dL (< 2)
[2020-08-26 11:10] LABS: ANION GAP 9.7 mmol/L (8-16); CALCIUM 8.1 mg/dL (8.5-10.1); CARBON DIOXIDE 24.3 mmol/L (21.0-32.0)
[2020-08-26 11:14] LABS: BASOPHILS 0.5 % (0-2); EOSINOPHILS 0.8 % (0-7); HEMOGLOBIN 12.5 g/dL (12-16); IMMATURE GRANULOCYTES 0.1 % (0-5); LYMPHOCYTES 11.9 % (15-50); MCH 31.7 pg (26.0-34.0); MCHC 33.8 g/dL (31.0-37.0); MCV 93.9 fL (80.0-100.0); MEAN PLATELET VOLUME 10.6 fL (7.4-10.4); MONOCYTES 1.3 % (2-11); NEUTROPHILS 85.4 % (40-80); PLATELET COUNT 298 10x3/uL (130-400); RBC 3.94 10x6/uL (4.00-5.40); RDW 12.4 % (11.5-14.5); WBC 8.4 10x3/uL (4.8-10.8)
[2020-08-26 11:17] LABS: ALBUMIN 3.4 g/dL (3.4-5.0); BILIRUBIN - TOTAL 0.24 mg/dL (0.2-1.3); C-REACTIVE PROTEIN 0.6 mg/dL (0.0-0.9); PROTEIN - SERUM 6.9 g/dL (6.4-8.2)
[2020-08-26 11:52] VITALS: BP 112/74
== END 2020-08-26 11:53 | disposition home or self-care (01) ==
LOC: D.ER 07:53
PROVIDERS: Family Medicine
DX: M54.9 Dorsalgia, unspecified (principal); G89.29 Other chronic pain; R06.02 Shortness of breath; R53.1 Weakness; E86.0 Dehydration

== ENCOUNTER 2020-09-14 01:14 | Emergency (ER) | payer MEDICAID ==
[~2020-09-14] VITALS: Ht 152.4 cm; Wt 46.8 kg
[2020-09-14 01:22] VITALS: Ht 152.4 cm; Wt 46.8 kg
[2020-09-14] MEDS ORDERED: TENORMIN25 MG PO (01:27)
[2020-09-14 01:56] LABS: BASOPHILS 0.4 % (0-2); EOSINOPHILS 3.5 % (0-7); HEMATOCRIT 35.6 % (36.0-48.0); IMMATURE GRANULOCYTES 0.1 % (0-5); LYMPHOCYTES 61.1 % (15-50); MCH 31.3 pg (26.0-34.0); MCHC 33.7 g/dL (31.0-37.0); MCV 92.7 fL (80.0-100.0); MEAN PLATELET VOLUME 9.4 fL (7.4-10.4); MONOCYTES 7.5 % (2-11); NEUTROPHILS 27.4 % (40-80); PLATELET COUNT 411 10x3/uL (130-400); RBC 3.84 10x6/uL (4.00-5.40); RDW 12.8 % (11.5-14.5); WBC 7.6 10x3/uL (4.8-10.8)
[2020-09-14 02:08] LABS: CALC OSMOLALITY 278 mosm/kg (275-300); CALCIUM 9.2 mg/dL (8.5-10.1); CARBON DIOXIDE 26.2 mmol/L (21.0-32.0); CHLORIDE - SERUM 106 mmol/L (98-107); CREATININE - SERUM 0.9 mg/dL (0.6-1.3); GLUCOSE 87 mg/dL (74-106); POTASSIUM - SERUM 3.6 mmol/L (3.5-5.1); SODIUM 141 mmol/L (136-145); UREA NITROGEN 9 mg/dL (7-18); eGFR NON AFRICAN AMERICAN 68 mL/min (90-120)
[2020-09-14 02:16] LABS: ALBUMIN 3.5 g/dL (3.4-5.0); ALKALINE PHOSPHATASE 82 U/L (30-120); ALT (SGPT) 19 U/L (10-68); LIPASE 203 U/L (73-393); PROTEIN - SERUM 7.2 g/dL (6.4-8.2)
[2020-09-14 02:17] LABS: TROPONIN-I < 0.017 ng/mL (0.000-0.060)
[2020-09-14 03:06] VITALS: BP 109/69
== END 2020-09-14 03:08 | disposition home or self-care (01) ==
LOC: D.ER 01:14
PROVIDERS: Family Medicine
DX: G89.18 Other acute postprocedural pain (principal); R10.9 Unspecified abdominal pain; R11.0 Nausea; Z90.49 Acquired absence of other specified parts of digestive tract

== ENCOUNTER 2021-03-31 12:36 | Emergency (ER) | payer MEDICAID ==
[~2021-03-31] VITALS: Ht 152.4 cm; Wt 46.8 kg
[~2021-03-31 12:36] MED LIST changes: +FLAGYL500 MG PO; +LEVOFLOXACIN500 MG PO; +TENORMIN25 MG PO
[2021-03-31 12:38] VITALS: Ht 152.4 cm; Wt 46.8 kg
[2021-03-31 17:35] VITALS: BP 159/102
== END 2021-03-31 17:35 | disposition home or self-care (01) ==
LOC: D.ER 12:36
DX: M54.2 Cervicalgia (principal); F41.9 Anxiety disorder, unspecified; K21.9 Gastro-esophageal reflux disease without esophagitis

== ENCOUNTER 2021-04-14 14:52 | Emergency (ER) | payer MEDICAID ==
[~2021-04-14] VITALS: Ht 152.4 cm; Wt 45.9 kg
[2021-04-14 14:57] VITALS: BP 127/82; Ht 152.4 cm; Wt 45.9 kg
[2021-04-14] MEDS ORDERED: OMNICEF300 MG PO (17:33)
== END 2021-04-14 17:09 | disposition home or self-care (01) ==
LOC: D.ER 14:52
DX: S16.1XXA Strain of muscle, fascia and tendon at neck level, initial encounter (principal); H66.91 Otitis media, unspecified, right ear; K21.9 Gastro-esophageal reflux disease without esophagitis; G43.909 Migraine, unspecified, not intractable, without status migrainosus

== ENCOUNTER 2021-05-25 08:33 | Emergency (ER) | payer MEDICAID ==
[~2021-05-25] VITALS: Ht 152.4 cm; Wt 45.5 kg
[~2021-05-25 08:33] MED LIST changes: +OMNICEF300 MG PO
[2021-05-25 08:37] VITALS: Ht 152.4 cm; Wt 45.5 kg
[2021-05-25 08:50] VITALS: BP 137/81
[2021-05-25] MEDS ORDERED: CYCLOBENZAPRINE10 MG PO (09:05)
[2021-05-25] MEDS ORDERED: CLEOCIN HCL300 MG PO (09:05)
[2021-05-25] MEDS ORDERED: ACETAMINOPHEN500 M1 PO (09:05)
[2021-05-25] MEDS ORDERED: CEPHALEXIN500 M1 PO (09:05)
== END 2021-05-25 09:15 | disposition home or self-care (01) ==
LOC: D.ER 08:33
DX: S30.860A Insect bite (nonvenomous) of lower back and pelvis, initial encounter (principal); K21.9 Gastro-esophageal reflux disease without esophagitis